=== PATIENT | female | born 1950 | race Two or more races ===

== ENCOUNTER 2019-03-04 12:00 | Inpatient (IN) | payer OTHER ==
[~2019-03-04] VITALS: Ht 165.1 cm; Wt 78.0 kg
[2019-03-04] MEDS ORDERED: COZAAR50 MG PO (15:03)
[2019-03-04] MEDS ORDERED: ACTOS30 MG PO (15:03)
[2019-03-04] MEDS ORDERED: OMEPRAZOLE40 MG PO (15:03)
[2019-03-04] MEDS ORDERED: CLARITIN10 M2 PO (15:04)
[2019-03-04] MEDS ORDERED: PLAQUENIL PO (15:05)
[2019-03-04] MEDS ORDERED: GABAPENTIN400 MG PO (15:05)
[2019-03-04] MEDS ORDERED: LIPITOR20 MG PO (15:05)
[2019-03-04] MEDS ORDERED: SINGULAIR10 MG PO (15:05)
[2019-03-04] MEDS ORDERED: DETROL LA4 MG PO (15:05)
[2019-03-04] MEDS ORDERED: ULTRAM50 MG PO (15:05)
[2019-03-04] MEDS ORDERED: LANTUS SOL100 UNIT/1 SUBCUTANEO (15:06)
== END 2019-03-11 15:45 | DRG 470 ==
LOC: O/R 03-09 06:21 → SURH 03-09 06:21
PROVIDERS: ADMIT Orthopaedic Surgery
PROC: 3E0F7GC Introduction of Other Therapeutic Substance into Respiratory Tract, Via Natural or Artificial Opening (ICD-10-PCS; 2019-03-09)
PROC: 0SRC0J9 Replacement of Right Knee Joint with Synthetic Substitute, Cemented, Open Approach (ICD-10-PCS; principal; 2019-03-09 07:00)
DX: M17.11 Unilateral primary osteoarthritis, right knee (principal); D62 Acute posthemorrhagic anemia; I10 Essential (primary) hypertension; E78.00 Pure hypercholesterolemia, unspecified; E11.9 Type 2 diabetes mellitus without complications; Z79.4 Long term (current) use of insulin; J45.40 Moderate persistent asthma, uncomplicated

== ENCOUNTER 2020-08-01 07:15 | Inpatient (IN) | payer OTHER ==
[~2020-08-01] VITALS: Ht 165.1 cm; Wt 79.8 kg
[~2020-08-01 07:15] MED LIST: ACTOS30 MG PO; CLARITIN10 M2 PO; COZAAR50 MG PO; DETROL LA4 MG PO; GABAPENTIN400 MG PO; LANTUS SOL100 UNIT/1 SUBCUTANEO; LIPITOR20 MG PO; OMEPRAZOLE40 MG PO; PLAQUENIL PO; SINGULAIR10 MG PO; ULTRAM50 MG PO
[2020-08-01] MEDS ORDERED: CLARITIN10 M1 PO (08:36)
[2020-08-01] MEDS ORDERED: LOSARTAN POTASS50 MG PO (08:36)
[2020-08-01] MEDS ORDERED: [UNRECOGNIZED DRUG - OTHER] PO (08:37)
[2020-08-01] MEDS ORDERED: DETROL PO (08:37)
[2020-08-01] MEDS ORDERED: ULTRAM50 MG PO (08:38)
[2020-08-01] MEDS ORDERED: BACLOFEN10 MG PO (08:38)
[2020-08-09] MEDS ORDERED: HYDROXYCHLOROQ200 MG (07:53)
[2020-08-09] MEDS ORDERED: TOLTERODINE TART4 MG (07:54)
== END 2020-08-10 17:46 | DRG 470 ==
LOC: SURH 07:15 → O/R 08-08 05:10 → SURH 08-08 05:10
PROVIDERS: ADMIT Orthopaedic Surgery; ATTEND Orthopaedic Surgery
PROC: 3E0F7GC Introduction of Other Therapeutic Substance into Respiratory Tract, Via Natural or Artificial Opening (ICD-10-PCS; 2020-08-08)
PROC: 0SRD0J9 Replacement of Left Knee Joint with Synthetic Substitute, Cemented, Open Approach (ICD-10-PCS; principal; 2020-08-08 07:00)
DX: M17.12 Unilateral primary osteoarthritis, left knee (principal); D62 Acute posthemorrhagic anemia; E11.9 Type 2 diabetes mellitus without complications; I10 Essential (primary) hypertension; J45.20 Mild intermittent asthma, uncomplicated; E78.00 Pure hypercholesterolemia, unspecified